=== PATIENT | male | born 1975 | race Caucasian/White ===

== ENCOUNTER 2020-09-07 08:21 | Day surgery (SDC) | payer BC ==
[2020-08-28 18:34] VITALS: BMI 26.9
[2020-09-07] MEDS ORDERED: BUPIVACAINE HCL/PF 2.5 MG/ML - 30 ML VIAL IJ ONE (09:06)
[2020-09-07] MEDS ORDERED: MIDAZOLAM HCL 2 MG/2 ML SINGLE DOSE VIAL ONE (09:23)
[2020-09-07] MEDS ORDERED: SUCCINYLCHOLINE CHLORIDE 200 MG/10 ML SYRINGE ONE (09:32)
[2020-09-07] MEDS ORDERED: PROPOFOL 20 ML ONE ×2 (09:32)
[2020-09-07] MEDS ORDERED: DEXAMETHASONE SOD PHOSPHATE 4 MG/1 ML VIAL ONE (09:33)
[2020-09-07] MEDS ORDERED: ONDANSETRON 4 MG/2 ML VIAL ONE (09:33)
[2020-09-07] MEDS ORDERED: ceFAZolin SODIUM 1 GM VIAL ONE (09:33)
[2020-09-07] MEDS ORDERED: LIDOCAINE HCL/PF 2% SDV 5ML VIAL ONE (09:33)
[2020-09-07] MEDS ORDERED: LIDOCAINE HCL 2% JELLY (5 ML/TUBE) ONE (09:33)
[2020-09-07] MEDS ORDERED: KETOROLAC TROMETHAMINE 30 MG/1 ML VIAL ONE (09:33)
[2020-09-07] MEDS ORDERED: BUPIVACAINE HCL/PF 0.25% (2.5MG/ML) 10 ML VIAL IJ ONE (10:10)
[2020-09-07] MEDS ORDERED: PROMETHAZINE HCL 25 MG/1 ML VIAL IVPUSH PRN (10:23)
[2020-09-07] MEDS ORDERED: oxyCODONE HCL 5 MG TABLET PO PRN ×2 (10:23)
[2020-09-07] MEDS ORDERED: ONDANSETRON 4 MG/2 ML VIAL IVPUSH PRN (10:23)
[2020-09-07 11:37] VITALS: TEMP 98.2
[2020-09-07] MEDS ORDERED: oxyCODONE HCL 5 MG TABLET ONE (11:39)
[2020-09-07 11:54] VITALS: BP 120/84; PULSE 54
== END 2020-09-07 12:26 | disposition home or self-care (01) ==
LOC: FASU 08:21
PROVIDERS: ATTEND Orthopaedic Surgery
PROC: 0SBD4ZZ Excision of Left Knee Joint, Percutaneous Endoscopic Approach (ICD-10-PCS; principal; 2020-09-07 09:48)
DX: S83.242A Other tear of medial meniscus, current injury, left knee, initial encounter (principal); S83.282A Other tear of lateral meniscus, current injury, left knee, initial encounter; S83.8X2A Sprain of other specified parts of left knee, initial encounter; M65.862 Other synovitis and tenosynovitis, left lower leg; X58.XXXA Exposure to other specified factors, initial encounter; Y92.9 Unspecified place or not applicable; Y93.9 Activity, unspecified
CPT/HCPCS: 88304-TC; 94760